=== PATIENT | female | born 1985 | race Caucasian/White ===

== ENCOUNTER 2017-09-30 14:26 | Outpatient (CLI) | payer MEDICAID ==
[2017-09-30 15:15] LABS: ADD MAN DIFF? NO
[2017-09-30 15:25] LABS: BASOPHILS % 0.2 % (0.0-2.0); EOSINOPHILS % 0.1 % (0.0-7.0); HEMATOCRIT 33.1 % (37.0-47.0); HEMOGLOBIN 11.3 g/dl (12.0-16.0); LYMPHOCYTES # 1.6 10^3/ul (0.8-2.9); LYMPHOCYTES % 19.8 % (15.0-51.0); MEAN CORPUSCULAR HEMOGLOBIN 30.4 pg (29.0-33.0); MEAN CORPUSCULAR HGB CONC 34.1 g/dl (32.0-37.0); MEAN PLATELET VOLUME 11.7 fl (7.4-10.4); MONOCYTE # 0.5 10^3/ul (0.3-0.9); MONOCYTES % 5.5 % (0.0-11.0); NEUTROPHILS % 73.8 % (39.0-77.0); PLATELET COUNT 221 10^3/UL (140-415); RED BLOOD COUNT 3.72 10^6/ul (4.20-5.40); RED CELL DISTRIBUTION WIDTH 13.5 % (11.5-14.5)
[2017-09-30 15:25] LABS: WHITE BLOOD COUNT 8.2 10^3/ul (4.8-10.8)
[2017-09-30 15:28] LABS: ADD UMIC YES; UR ASCORBIC ACID 20 mg/dL (NEGATIVE); UR BACTERIA FEW /HPF (NONE SEEN); UR BILIRUBIN (Dip) NEGATIVE (NEGATIVE); UR BLOOD (Dip) NEGATIVE (NEGATIVE); UR CLARITY SLIGHTLY CLOUDY (CLEAR); UR COLOR YELLOW (YELLOW); UR GLUCOSE (Dip) NEGATIVE (NEGATIVE); UR KETONES (Dip) 1+ mg/dL (NEGATIVE); UR LEUKOCYTE ESTERASE (Dip) TRACE Leu/ul (NEGATIVE); UR MUCUS FEW /HPF (NONE SEEN); UR NITRITE (Dip) NEGATIVE (NEGATIVE); UR RBC 0 /HPF (0-5); UR SPECIFIC GRAVITY (Dip) 1.024 (1.003-1.030); UR SQUAMOUS EPITHELIAL CELL MODERATE /HPF (FEW); UR TOTAL PROTEIN (Dip) NEGATIVE (NEGATIVE); UR UROBILINOGEN (Dip) NEGATIVE (NEGATIVE); UR WBC 1 /HPF (0-5)
[2017-09-30 15:36] LABS: ALANINE AMINOTRANSFERASE 25 IU/L (13-69); ALBUMIN 3.9 g/dl (3.3-4.9); ALBUMIN/GLOBULIN RATIO 1.11; ALKALINE PHOSPHATASE 192 IU/L (42-121); ANION GAP 18 (8-16); ASPARTATE AMINO TRANSFERASE 24 IU/L (15-46); BILIRUBIN,INDIRECT 0.2 mg/dl (0-1.1); BILIRUBIN,TOTAL 0.2 mg/dl (0.2-1.3); BLOOD UREA NITROGEN 9 mg/dl (7-20); CALCIUM 8.9 mg/dl (8.4-10.2); CARBON DIOXIDE 19 mmol/L (21-31); CHLORIDE 106 mmol/L (97-110); CREATININE 0.63 mg/dl (0.44-1.00); GLUCOSE 79 mg/dl (70-220); POTASSIUM 3.7 mmol/L (3.5-5.1); SODIUM 139 mmol/L (135-144); TOTAL PROTEIN 7.4 g/dl (6.1-8.1); URIC ACID 4.8 mg/dl (3.1-7.9)
[2017-09-30 15:48] LABS: INR 0.93; PARTIAL THROMBOPLASTIN TIME 27.6 Sec (25.0-35.0); PROTIME 12.6 Sec (11.9-14.9)
[2017-09-30] MEDS: ACETAMINOPHEN 325 MG TAB PO (16:49)
== END 2017-09-30 18:05 | disposition home or self-care (01) ==
LOC: OBT 14:26 → L-D 14:27 → OBT 18:05
DX: O13.3 Gestational [pregnancy-induced] hypertension without significant proteinuria, third trimester (principal); Z3A.38 38 weeks gestation of pregnancy
CPT/HCPCS: 76815; 76818; 80053; 81001; 84560; 85025; 85384; 85610; 85730

== ENCOUNTER 2017-10-01 20:27 | Outpatient (CLI) | payer MEDICAID ==
[2017-10-01 22:09] LABS: COLLECTION PERIOD 24 hrs
[2017-10-01 22:17] LABS: ADD MAN DIFF? NO
[2017-10-01 22:18] LABS: WHITE BLOOD COUNT 7.6 10^3/ul (4.8-10.8)
[2017-10-01 22:18] LABS: BASOPHILS % 0.3 % (0.0-2.0); EOSINOPHILS % 0.3 % (0.0-7.0); HEMATOCRIT 31.7 % (37.0-47.0); HEMOGLOBIN 10.7 g/dl (12.0-16.0); LYMPHOCYTES # 1.8 10^3/ul (0.8-2.9); LYMPHOCYTES % 24.3 % (15.0-51.0); MEAN CORPUSCULAR HEMOGLOBIN 30.1 pg (29.0-33.0); MEAN CORPUSCULAR HGB CONC 33.8 g/dl (32.0-37.0); MEAN CORPUSCULAR VOLUME 89.3 fl (82.0-101.0); MEAN PLATELET VOLUME 11.6 fl (7.4-10.4); MONOCYTE # 0.6 10^3/ul (0.3-0.9); MONOCYTES % 7.7 % (0.0-11.0); NEUTROPHIL # 5.1 10^3/ul (1.6-7.5); NEUTROPHILS % 66.9 % (39.0-77.0); PLATELET COUNT 218 10^3/UL (140-415); RED BLOOD COUNT 3.55 10^6/ul (4.20-5.40); RED CELL DISTRIBUTION WIDTH 13.3 % (11.5-14.5)
[2017-10-01 22:22] LABS: ADD UMIC NO; UR ASCORBIC ACID 20 mg/dL (NEGATIVE); UR BILIRUBIN (Dip) NEGATIVE (NEGATIVE); UR BLOOD (Dip) NEGATIVE (NEGATIVE); UR CLARITY CLEAR (CLEAR); UR COLOR YELLOW (YELLOW); UR GLUCOSE (Dip) NEGATIVE (NEGATIVE); UR KETONES (Dip) NEGATIVE (NEGATIVE); UR LEUKOCYTE ESTERASE (Dip) NEGATIVE Leu/ul (NEGATIVE); UR NITRITE (Dip) NEGATIVE (NEGATIVE); UR SPECIFIC GRAVITY (Dip) 1.023 (1.003-1.030); UR TOTAL PROTEIN (Dip) NEGATIVE (NEGATIVE); UR UROBILINOGEN (Dip) NEGATIVE (NEGATIVE)
[2017-10-01 22:37] LABS: ALANINE AMINOTRANSFERASE 16 IU/L (13-69); ALBUMIN 3.3 g/dl (3.3-4.9); ALBUMIN/GLOBULIN RATIO 0.94; ALKALINE PHOSPHATASE 187 IU/L (42-121); ANION GAP 14 (8-16); ASPARTATE AMINO TRANSFERASE 21 IU/L (15-46); BILIRUBIN,INDIRECT 0.1 mg/dl (0-1.1); BILIRUBIN,TOTAL 0.1 mg/dl (0.2-1.3); BLOOD UREA NITROGEN 13 mg/dl (7-20); CALCIUM 8.8 mg/dl (8.4-10.2); CARBON DIOXIDE 19 mmol/L (21-31); CHLORIDE 109 mmol/L (97-110); GLUCOSE 91 mg/dl (70-220); POTASSIUM 3.9 mmol/L (3.5-5.1); SODIUM 138 mmol/L (135-144); TOTAL PROTEIN 6.8 g/dl (6.1-8.1); URIC ACID 5.1 mg/dl (3.1-7.9)
[2017-10-01 22:39] LABS: 24 HR POTASSIUM VOLUME 950 mls; URINE POTASSIUM 44.4 mmol/l; VOLUME 950 mls
[2017-10-01 22:44] LABS: INR 1.01; PROTIME 13.4 Sec (11.9-14.9)
[2017-10-01 22:45] LABS: PARTIAL THROMBOPLASTIN TIME 28.3 Sec (25.0-35.0)
[2017-10-01 23:11] LABS: COLLECTION PERIOD 24 hrs
[2017-10-01 23:24] LABS: 24HR URINE TOTAL PROTEIN 66.5 mg/24hrs (42.0-225.0); COLLECTION PERIOD 24 hrs; VOLUME 950 ml/24hrs; VOLUME 950 mls
[2017-10-01 23:25] LABS: CREATININE CLEARANCE 125.6 mls/min (84.0-162.0); SCRET 0.63 mg/dl (0.44-1.00)
== END 2017-10-02 01:15 | disposition home or self-care (01) ==
LOC: OBT 20:27 → L-D 20:28
DX: O26.893 Other specified pregnancy related conditions, third trimester (principal); R60.9 Edema, unspecified; R51 Headache; Z3A.38 38 weeks gestation of pregnancy
CPT/HCPCS: 59025; 80053; 81003; 82436; 82575; 84133; 84156; 84300; 84560; 85025; 85384; 85610; 85730

== ENCOUNTER 2017-10-06 05:23 | Inpatient (IN) | payer MEDICAID ==
[2017-10-06] MEDS ORDERED: OXYTOCIN 30 UNITS/LR 500 ML IV ×2 (06:00→15:30)
[2017-10-06] MEDS ORDERED: CARBOPROST 250 MCG INJ IM ×2 (06:00→15:30)
[2017-10-06] MEDS ORDERED: MISOPROSTOL 200 MCG TAB PR ×2 (06:00→15:30)
[2017-10-06] MEDS ORDERED: METHYLERGONOVINE 0.2 MG INJ IM ×2 (06:00→15:30)
[2017-10-06 06:29] LABS: ADD MAN DIFF? NO
[2017-10-06 06:33] LABS: WHITE BLOOD COUNT 8.3 10^3/ul (4.8-10.8)
[2017-10-06 06:33] LABS: BASOPHILS % 0.2 % (0.0-2.0); EOSINOPHILS # 0.1 10^3/ul (0.0-0.5); EOSINOPHILS % 0.7 % (0.0-7.0); HEMATOCRIT 33.7 % (37.0-47.0); HEMOGLOBIN 11.2 g/dl (12.0-16.0); LYMPHOCYTES % 24.5 % (15.0-51.0); MEAN CORPUSCULAR HEMOGLOBIN 29.6 pg (29.0-33.0); MEAN CORPUSCULAR HGB CONC 33.2 g/dl (32.0-37.0); MEAN CORPUSCULAR VOLUME 89.2 fl (82.0-101.0); MEAN PLATELET VOLUME 11.8 fl (7.4-10.4); MONOCYTE # 0.7 10^3/ul (0.3-0.9); MONOCYTES % 8.3 % (0.0-11.0); NEUTROPHIL # 5.4 10^3/ul (1.6-7.5); NEUTROPHILS % 65.5 % (39.0-77.0); PLATELET COUNT 207 10^3/UL (140-415); RED BLOOD COUNT 3.78 10^6/ul (4.20-5.40); RED CELL DISTRIBUTION WIDTH 13.5 % (11.5-14.5)
[2017-10-06 06:55] LABS: INR 0.89; PARTIAL THROMBOPLASTIN TIME 28.1 Sec (25.0-35.0); PROTIME 12.1 Sec (11.9-14.9); PT RATIO 0.9
[2017-10-06 07:21] LABS: HEPATITIS B SURFACE ANTIGEN NEGATIVE (NEGATIVE)
[2017-10-06] MEDS: LACTATED RINGER'S 1,000 ML IV ×2 (07:41→07:42)
[2017-10-06] MEDS ORDERED: ONDANSETRON 4 MG INJ (07:47)
[2017-10-06] MEDS ORDERED: FAMOTIDINE 20 MG INJ (07:47)
[2017-10-06] MEDS ORDERED: METOCLOPRAMIDE 10 MG INJ (07:47)
[2017-10-06] MEDS ORDERED: morphine SULFATE/PF (10 MG/10 ML) INJ (07:52)
[2017-10-06] MEDS ORDERED: OXYTOCIN 10 UNIT INJ (07:54)
[2017-10-06] MEDS ORDERED: BUPIVACAINE 0.75%/DEXT (SPINAL) 2 ML INJ (07:57)
[2017-10-06] MEDS: ONDANSETRON 4 MG INJ IV (07:57)
[2017-10-06] MEDS: FAMOTIDINE 20 MG INJ IV (07:57)
[2017-10-06] MEDS: METOCLOPRAMIDE 10 MG INJ IV (07:57)
[2017-10-06] MEDS: CEFAZOLIN 2 GM/50 ML (PMX) 50 ML IV (07:58)
[2017-10-06] MEDS ORDERED: HYDROmorphONE (0.2 MG/ML) 10ML SYG IV ×2 (09:30)
[2017-10-06] MEDS ORDERED: ONDANSETRON 4 MG INJ IV ×2 (09:30→15:00)
[2017-10-06] MEDS ORDERED: KETOROLAC 30 MG INJ IV (09:30)
[2017-10-06] MEDS ORDERED: NALOXONE (0.4 MG/ML) INJ IV ×2 (09:30→15:00)
[2017-10-06] MEDS ORDERED: DIPHENHYDRAMINE 50 MG INJ IV (09:30)
[2017-10-06] MEDS ORDERED: FENTAnyl 50 MCG/ML VIAL IV ×2 (09:30)
[2017-10-06] MEDS: HYDROmorphONE (0.2 MG/ML) 10ML SYG IV (10:12)
[2017-10-06] MEDS: OXYTOCIN 30 UNITS/LR 500 ML IV ×4 (10:27→20:41)
[2017-10-06] MEDS ORDERED: HYDROmorphONE 0.5 MG/0.5 ML SYG IV ×2 (14:30)
[2017-10-06] MEDS ORDERED: HYDROCODONE/APAP (5/325) TAB PO ×2 (15:30)
[2017-10-06] MEDS ORDERED: LANOLIN 7 GM TUBE TOP (15:30)
[2017-10-06] MEDS ORDERED: OXYCODONE/ACETAMINOPHEN (5/325) TAB PO (15:30)
[2017-10-06] MEDS: CEFAZOLIN 1 GM/50 ML (PMX) 50 ML IVPB (17:32)
[2017-10-06 19:48] LABS: RAPID PLASMA REAGIN NONREACTIVE (NR)
[2017-10-06] MEDS: SENNA/DOCUSATE NA (8.6MG/50MG) TAB PO (21:00)
[2017-10-06] MEDS: DIPHENHYDRAMINE 50 MG INJ IM (22:52)
[2017-10-07] MEDS: OXYTOCIN 30 UNITS/LR 500 ML IV ×4 (01:18→11:28)
[2017-10-07] MEDS: KETOROLAC 30 MG INJ IV (06:22)
[2017-10-07] MEDS: LACTATED RINGER'S 1,000 ML IV (06:32)
[2017-10-07 07:04] LABS: ADD MAN DIFF? NO
[2017-10-07 07:10] LABS: WHITE BLOOD COUNT 11.3 10^3/ul (4.8-10.8)
[2017-10-07 07:10] LABS: BASOPHILS % 0.3 % (0.0-2.0); EOSINOPHILS % 0.3 % (0.0-7.0); HEMATOCRIT 28.2 % (37.0-47.0); HEMOGLOBIN 9.4 g/dl (12.0-16.0); LYMPHOCYTES # 1.6 10^3/ul (0.8-2.9); LYMPHOCYTES % 13.8 % (15.0-51.0); MEAN CORPUSCULAR HEMOGLOBIN 29.8 pg (29.0-33.0); MEAN CORPUSCULAR HGB CONC 33.3 g/dl (32.0-37.0); MEAN CORPUSCULAR VOLUME 89.5 fl (82.0-101.0); MEAN PLATELET VOLUME 11.4 fl (7.4-10.4); MONOCYTE # 0.9 10^3/ul (0.3-0.9); MONOCYTES % 7.6 % (0.0-11.0); NEUTROPHIL # 8.8 10^3/ul (1.6-7.5); NEUTROPHILS % 77.5 % (39.0-77.0); PLATELET COUNT 182 10^3/UL (140-415); RED BLOOD COUNT 3.15 10^6/ul (4.20-5.40); RED CELL DISTRIBUTION WIDTH 13.6 % (11.5-14.5)
[2017-10-07] MEDS: SENNA/DOCUSATE NA (8.6MG/50MG) TAB PO (09:42)
[2017-10-07] MEDS: OXYCODONE/ACETAMINOPHEN (5/325) TAB PO (09:42)
[2017-10-07] MEDS: IBUPROFEN 600 MG TAB PO ×2 (12:03→18:53)
[2017-10-08] MEDS: IBUPROFEN 600 MG TAB PO ×5 (00:20→23:56)
[2017-10-08] MEDS: SENNA/DOCUSATE NA (8.6MG/50MG) TAB PO ×3 (00:20→23:57)
[2017-10-09] MEDS: IBUPROFEN 600 MG TAB PO ×2 (05:37→12:51)
[2017-10-09] MEDS: SENNA/DOCUSATE NA (8.6MG/50MG) TAB PO (09:00)
[2017-10-09] MEDS: DIPHTH/TET/ACEL PERTUSS (ADULT) 0.5 ML VIAL IM* (09:18)
[2017-10-09] MEDS: NA PHOSPHATE/BIPHOS 133 ML ENEMA PR (10:00)
== END 2017-10-09 15:56 | disposition home or self-care (01) | DRG 766 ==
LOC: L-D 05:23 → PP1 14:41
PROVIDERS: Obstetrics & Gynecology
PROC: 10D00Z1 Extraction of Products of Conception, Low, Open Approach (ICD-10-PCS; principal; 2017-10-06 07:30)
PROC: 0UL70ZZ Occlusion of Bilateral Fallopian Tubes, Open Approach (ICD-10-PCS; 2017-10-06 07:30)
PROC: 3E033VJ Introduction of Other Hormone into Peripheral Vein, Percutaneous Approach (ICD-10-PCS; 2017-10-06 07:30)
DX: O75.82 Onset (spontaneous) of labor after 37 completed weeks of gestation but before 39 completed weeks gestation, with delivery by (planned) cesarean section (principal); Z30.2 Encounter for sterilization; Z3A.39 39 weeks gestation of pregnancy; Z37.0 Single live birth
CPT/HCPCS: 85025; 85610; 85730; 86592; 86850; 86900; 86901; 87340; 88302; 94760; 99464